=== PATIENT | female | born 1985 | race Caucasian/White ===

== ENCOUNTER 2016-09-19 06:23 | Inpatient (IN) | payer OTHER ==
[2016-09-19 16:50] VITALS: BP 132/95
[2016-09-19 17:05] VITALS: BP 137/79
[2016-09-19 17:20] VITALS: BP 109/62
[2016-09-19 23:45] VITALS: BP 111/68
--- NOTE | 2016-09-20 01:11 | NUR ---
Pt. up walking in room. To the restroom unassisted and tolerated well. Pt. did own brandan care and changed her pad w/o difficulty. C/O slight cramping, using ROBERTO kit and states that it is effective. No distress noted. Encouraged pt to call for assistance if needed. Pt. verbalized understanding. Will continue to monitor pt status. in room for support.
[2016-09-20 08:51] VITALS: BP 116/68
--- NOTE | 2016-09-20 12:51 | Provider's Discharge Care Plan ---
Problem, Goal, Plan Problem List 1. Vaginal delivery Goals: Improve disease control Instructions: Follow up as needed
--- NOTE | 2016-09-20 12:51 | Provider's Discharge Care Plan ---
Problem, Goal, Plan Problem List 1. Vaginal delivery Goals: Improve disease control Instructions: Follow up as needed
[2016-09-20 17:00] VITALS: BP 112/78
--- NOTE | 2016-09-20 18:50 | NUR ---
DCD TO HOME AT 89 IN STABLE CONDITION. AMBULATED ON OWN TO PRIVATE AUTO WITHOUT EVENT. ESCORTED BY Alexis BowenRN)
== END 2016-09-20 18:15 | disposition home or self-care (01) | DRG 560 ==
LOC: OB SRH 06:23
PROVIDERS: ADMIT Obstetrics & Gynecology
PROC: 0HQ9XZZ Repair Perineum Skin, External Approach (ICD-10-PCS; principal; 2016-09-19)
PROC: 10E0XZZ Delivery of Products of Conception, External Approach (ICD-10-PCS; principal; 2016-09-19)
PROC: 3E033VJ Introduction of Other Hormone into Peripheral Vein, Percutaneous Approach (ICD-10-PCS; 2016-09-19)
DX: O48.0 Post-term pregnancy (principal); Z37.0 Single live birth; O70.0 First degree perineal laceration during delivery; Z3A.40 40 weeks gestation of pregnancy
CPT/HCPCS: 40011; 40021; 82221; 83475; 83501; 90074; 91162; 91163; 95059